=== PATIENT | female | born 1975 ===

== ENCOUNTER 2017-10-20 22:18 | Emergency (ER) | payer MEDICARE ==
[2017-10-20 22:44] VITALS: O2SAT 100
[2017-10-20 22:58] LABS: BASO % 0.6 % (0.0-2.0); EOS # 0.1 K/uL (0.0-0.7); EOS % 1.1 % (0.0-4.0); HEMOGLOBIN 8.5 g/dL (12.0-16.0); LYMPH # 1.4 K/uL (1.0-4.3); LYMPH % 17.4 % (20.0-40.0); MEAN CELL VOLUME 72.7 fl (81.0-99.0); MEAN CORPUSCULAR HEMOGLOBIN 22.5 pg (27.0-31.0); MEAN CORPUSCULAR HGB CONC 30.9 g/dL (33.0-37.0); MEAN PLATELET VOLUME 8.5 fl (7.2-11.7); MONO # 0.7 K/uL (0.0-0.8); MONO % 8.3 % (0.0-10.0); NEUT % 72.6 % (50.0-75.0); RBC 3.77 Mil/uL (3.80-5.20); RED CELL DISTRIBUTION WIDTH 17.5 % (11.5-14.5); WHITE BLOOD COUNT 8.3 K/uL (4.8-10.8)
[2017-10-20 23:06] LABS: ALB/GLOB RATIO 1.1 (1.0-2.1); ALBUMIN 3.9 g/dL (3.5-5.0); ALT/SGPT 31 U/L (9-52); AST/SGOT 26 U/L (14-36); BLOOD UREA NITROGEN 21 mg/dl (7-17); CALCIUM 9.1 mg/dL (8.4-10.2); GFR AFRICAN-AMERICAN > 60; GFR NON-AFRICAN AMERICAN > 60
[2017-10-20 23:08] LABS: PROTHROMBIN TIME 10.6 Seconds (9.8-13.1)
[2017-10-20 23:09] LABS: PARTIAL THROMBOPLASTIN TIME 28.5 Seconds (25.6-37.1)
--- NOTE | 2017-10-20 23:32 | ED PDOC ---
HPI: Altered Mental Status Time Seen by Provider: 10/20/17 22:31 Chief Complaint (Nursing): Weakness/Neurological Deficit Chief Complaint (Provider): Weakness/Neurological Deficit History Per: Patient, EMS History/Exam Limitations: None Onset/Duration Of Symptoms: Mins Current Symptoms Are (Timing): Better Usual Baseline: Ambulatory (with walker), Other (left sided numbness) Additional Complaint(s): Carri Birch is a 42 year old female with a past medical history of Multiple Sclerosis who was brought to the ED by EMS for evaluation of altered mental status, onset 45 minutes prior to arrival. Patient experienced sudden onset confusion while walking to her sisters home and she didn't know where she was or how to get to her destination. An ambulance was called to site for evaluation of confusion. Patient states she had a similar episode 1 year ago secondary to MS exacerbation. Her baseline is left sided numbness of the entire length of the body and she uses a walker for ambulation. She states that she started to feel better on route to the hospital and denies any new numbness or weakness. PMD: Dr. Alvarez, Neurologist Dr. Willis Past Medical History Reviewed: Historical Data, Nursing Documentation, Vital Signs Vital Signs: Last Vital Signs Temp Pulse 102 H 10/20/17 22:44 Resp 13 10/20/17 22:44 BP 130/71 10/20/17 22:44 Pulse Ox 100 10/20/17 22:44 - Medical History PMH: TIA Other PMH: multiple sclerosis - Surgical History Surgical History: No Surg Hx - Family History Family History: States: Hypertension - Social History Current smoker - smoking cessation education provided: No Alcohol: None Drugs: Denies - Home Medications Home Medications: Ambulatory Orders Medication Instructions Recorded Ferrous Sulfate [Feosol] 325 mg PO TID #90 tab 10/21/17 - Allergies Allergies/Adverse Reactions: Allergies Allergy/AdvReac Type Severity Reaction Status Date / Time No Known Allergies Allergy Verified 10/20/17 22:28 Review of Systems ROS Statement: Except As Marked, All Systems Reviewed And Found Negative Neurological: Positive for: Confusion. Negative for: Weakness, Numbness (new) Physical Exam - Reviewed Nursing Documentation Reviewed: Yes Vital Signs Reviewed: Yes - Physical Exam Appears: Positive for: Non-toxic, No Acute Distress Head Exam: Positive for: ATRAUMATIC, NORMOCEPHALIC Skin: Positive for: Warm, Dry Eye Exam: Positive for: EOMI, PERRL ENT: Negative for: Pharyngeal Erythema, Tonsillar Exudate Neck: Positive for: Painless ROM, Supple Cardiovascular/Chest: Positive for: Regular Rate, Rhythm, Chest Non Tender. Negative for: Murmur Respiratory: Positive for: Normal Breath Sounds. Negative for: Wheezing Gastrointestinal/Abdominal: Positive for: Soft. Negative for: Tenderness Back: Positive for: Normal Inspection. Negative for: Decreased ROM Extremity: Positive for: Normal ROM. Negative for: Deformity Lymphatic: Negative for: Adenopathy Neurologic/Psych: Positive for: Alert, Oriented (x3), Motor/Sensory Deficits ( no motor/ decreased light touch sensation left side of body) - Laboratory Results Result Diagrams: 10/20/17 22:50 10/20/17 22:50 - ECG O2 Sat by Pulse Oximetry: 100 (RA) Pulse Ox Interpretation: Normal Medical Decision Making Medical Decision Making: Time: 22:50 Impression: transient confusion Differentials: MS exacerbation, dehydration, metabolic encephalopathy, electrolyte abnormality, TIA Plan: --Blood Type and Sreen --CT Head --EKG--Alcohol Serum --CMP --Magnesium --Phosphorous --TSH --Troponin --ED Urine --COAG --CBC --Glucose, POC 23:[address] Jones, neurologist phone operator. Patient given 1 gram of prednisone and told to continue prednisone at home as prescribed. Labs demonstrate anemia which was discussed with patient who reported a history of iron deficiency anemia and asked for a prescription of iron supplement. Otherwise blood work was unremarkable. 12:10 Revaluation patient reports feeling better. Provider discussed with patient findings so far and plan of care. Pt eager to go home. CT results and IV methylprednison infusion still pending. CT Head: FINDINGS: Brain: Mild small vessel ischemic/degenerative changes. Mild cerebral and cerebellar atrophy. No hemorrhage. Ventricles: Unremarkable. No ventriculomegaly. Bones/joints: Unremarkable. No acute fracture. Soft tissues: Unremarkable. Sinuses: Unremarkable as visualized. No acute sinusitis. Mastoid air cells: Unremarkable as visualized. No mastoid effusion. IMPRESSION: 1. Mild small vessel ischemic/degenerative changes. 2. Mild cerebral and cerebellar atrophy. Scribe Attestation: Documented by, Joseline Hammer acting as a scribe for Abbi Samaniego MD. Provider Scribe Attestation: All medical record entries made by the Scribe were at my direction and personally dictated by me. I have reviewed the chart and agree that the record accurately reflects my personal performance of the history, physical exam, medical decision making, and the department course for this patient. I have also personally directed, reviewed, and agree with the discharge instructions and disposition. Disposition - Clinical Impression Clinical Impression: Confusion and disorientation Counseled Patient/Family Regarding: Studies Performed, Diagnosis, Need For Followup, Rx Given - Disposition Disposition: Routine/Home Disposition Time: 00:30 Condition: IMPROVED Additional Instructions: FOLLOW UP WITH DR WILLIS SOON POSSIBLE FOR FURTHER EVALUATION CONTINUE TAKING ALL YOUR REGULAR MEDICATIONS, ESPECIALLY YOUR MS MEDICATIONS AND IRON TABLETS. RETURN TO ER FOR WORSENING SYMPTOMS. Prescriptions: Ferrous Sulfate [Feosol] 325 mg PO TID #90 tab Instructions: Multiple Sclerosis in Adults, Anemia Caused by Low Iron Forms: [employer] (Yoruba)
[2017-10-21] MEDS ORDERED: methylPREDNISolone 1 GM in Sodium Chloride 0.9% 250 ML IV STA (00:16)
[2017-10-21 01:49] VITALS: BP 98/70; PULSE 72; RESP 15; TEMP 98.1
--- NOTE | 2017-10-21 08:43 | CARD ---
APPROVED REPORT EKG Measurement Heart [id number] <Conclusion> Normal sinus rhythm with sinus arrhythmia Normal ECG
--- NOTE | 2017-10-21 14:44 | CT ---
PROCEDURE: CT HEAD WITHOUT CONTRAST. HISTORY: amd h/o ms COMPARISON: None available. TECHNIQUE: Axial computed tomography images were obtained through the head/brain without intravenous contrast. Radiation dose: Total exam DLP = 874.06 mGy-cm. This CT exam was performed using one or more of the following dose reduction techniques: Automated exposure control, adjustment of the mA and/or kV according to patient size, and/or use of iterative reconstruction technique. FINDINGS: HEMORRHAGE: No intracranial hemorrhage. BRAIN: Mild cerebral and cerebellar atrophy are identified with the brainstem nonfocal. Limited white-matter change identified the bilateral centrum semiovale spaces. Sulcal and cisternal widening is out of context to the increased ventricular volume diffusely. The pattern may reflect white matter loss related to the patient's known history of multiple sclerosis. There is no prior comparison available. Clinically correlate further. There is no mass effect or suspicious extra-axial fluid collection. VENTRICLES: All ventricles appears somewhat dilated. . CALVARIUM: Unremarkable. PARANASAL SINUSES: Unremarkable as visualized. No significant inflammatory changes. MASTOID AIR CELLS: Unremarkable as visualized. No inflammatory changes. OTHER FINDINGS: None. IMPRESSION: No cortical edema, mass effect or intracranial hemorrhage. Mild brain volume loss is appreciated but appears asymmetric and may be a function of central greater than peripheral atrophy although NPH is not completely excluded. Clinically correlate further. Given prior history of MS, the overall pattern may simply be a function of atrophy. No prior comparison available. Further clinical correlation recommended. Concordant preliminary report from [facility], 07/18/2017.
== END 2017-10-21 02:28 | disposition home or self-care (01) ==
LOC: H.ER 22:18
DX: R41.82 Altered mental status, unspecified (principal); G35 Multiple sclerosis; D50.9 Iron deficiency anemia, unspecified; Z86.73 Personal history of transient ischemic attack (TIA), and cerebral infarction without residual deficits
CPT/HCPCS: 70450; 80053; 82948; 83735; 84100; 84443; 84484; 85025; 85610; 85730; 86850; 86900; 93005; 96374; 99285; G0480; J2930